=== PATIENT | female | born 1955 ===

== ENCOUNTER 2020-09-21 17:51 | Emergency (ER) | payer MEDICARE, MEDICAID ==
--- NOTE | 2020-09-21 18:34 | CR ---
PROCEDURE INFORMATION: Exam: XR Chest Exam date and time: 09/21/2020 6:21 PM Age: 65 years old Clinical indication: Left-sided chest pain TECHNIQUE: Imaging protocol: XR of the chest. Views: 1 view. COMPARISON: No relevant prior studies available. FINDINGS: Lungs: Unremarkable. No consolidation. Pleural spaces: Unremarkable. No pleural effusion. No pneumothorax. Heart/Mediastinum: Unremarkable. No cardiomegaly. Bones/joints: Unremarkable. IMPRESSION: No acute findings.
--- NOTE | 2020-09-21 18:40 | EDM.PDOC ---
<IggyKristaJessicadebbi Angelo - Last Filed: 09/22/20 00:17> ED HPI GENERAL MEDICAL PROBLEM - General Stated Complaint: CHEST PAIN ON LEFT SIDE Time Seen by Provider: 09/21/20 18:20 - Related Data Allergies Allergy/AdvReac Type Severity Reaction Status Date / Time aspirin Allergy Abdominal Verified 09/21/20 18:21 Pain Home Meds: Home Meds Gabapentin [Neurontin] 300 mg PO BID 09/21/20 [History] Hydrocodone/Acetaminophen [Hydrocodone-Acetamin 10-325 mg] 1 mg PO ASDIRECTED 09/21/20 [History] Indomethacin [Indocin SR] 75 mg PO DAILY 09/21/20 [History] Trihexyphenidyl [Artane] 2 mg PO ASDIRECTED 09/21/20 [History] Zolpidem [Ambien] 10 mg PO BEDTIME 09/21/20 [History] #2 Interpretation Rhythm: NSR [place]: Normal P-Wave: Present QRS: Normal ST-T: Normal Comparison: No Change Course - Re-Assessments/Exams Free Text/Narrative Re-Assessment/Exam: 09/22/20 00:18 No further c/o of chest pain. Reports some decreased appetite with stomach bug 2 days prior with diarrhea which has improved. Reports some increased frequency and burning past 24 hours. Departure - Departure Disposition: Home, Self-Care 01 Condition: Good Clinical Impression: Atypical chest pain UTI (urinary tract infection) Qualifiers: Urinary tract infection type: site unspecified Hematuria presence: without hematuria Qualified Code(s): N39.0 - Urinary tract infection, site not specified Instructions: Urinary Tract Infection, Adult, [id number], Nonspecific Chest Pain, Adult, [id number] Referrals: PCP,None [Primary Care Provider] - Forms: ED Department Discharge Additional Instructions: bland diet recheck clinic urgent follow up chest pain, sweating, shortness of breath macrobid 100mg one twice daily for one week <Christin Price - Last Filed: 09/22/20 07:35> ED HPI GENERAL MEDICAL PROBLEM - General Source of Information: Reports: Patient, RN, RN Notes Reviewed History Limitations: Reports: No Limitations - History of Present Illness INITIAL COMMENTS - FREE TEXT/NARRATIVE: Patient presents to the ED via personal vehicle with complaints of chest pain. The patient reports she has been experiencing transient chest pain for about three weeks; she notes it is localized to her left chest. She states the pain occurs in short, sharp bursts and moves around her left thorax, including her lateral chest, upper back, and most recently in her mid-left chest. She denies a history of respiratory disease or cardiac events. She denies recent illness, fever, shaking chills, cough, sore throat, palpitations, nausea, vomiting, or constipation. She does attest to the pain causing her to "..catch my breath" but denies overall shortness of breath. Additionally, she attests to diarrhea over the past 24 hours as well as dysuria and inability to fully void. She attests to a history of a COVID infection and notes she has received two doses of a COVID vaccine. The patient reports she is a former cigarette smoker with a quit date in 1994. She denies alcohol or recreational drug use. Left Chest Pain Score (Numeric/FACES): 8 Past Medical History Musculoskeletal History: Reports: Neck Pain, Chronic Social & Family History - Tobacco Use Tobacco Use Status *Q: Former Tobacco User Used Tobacco, but Quit: Yes Month/Year Tobacco Last Used: 1994 - Caffeine Use Caffeine Use: Reports: Tea - Recreational Drug Use Recreational Drug Use: No ED ROS GENERAL - Review of Systems Review Of Systems: Comprehensive ROS is negative, except as noted in HPI. ED EXAM, GENERAL - Physical Exam Exam: See Below Exam Limited By: No Limitations General Appearance: Alert, No Apparent Distress Eye Exam: Bilateral Eye: EOMI, Normal Inspection, PERRL (3mm) Ears: Normal External Exam, Normal Canal, Hearing Grossly Normal, Normal TMs Ear Exam: Bilateral Ear: Auricle Normal, Canal Normal, TM normal Nose: Normal Inspection, Normal Mucosa, No Blood Throat/Mouth: Normal Inspection, Normal Voice, No Airway Compromise Head: Atraumatic, Normocephalic Neck: Normal Inspection, Supple, Non-Tender, Full Range of Motion. No: Lymphadenopathy (L), Lymphadenopathy (R) Respiratory/Chest: No Respiratory Distress, Lungs Clear, Normal Breath Sounds, No Accessory Muscle Use, Chest Non-Tender. No: Crackles, Rales, Rhonchi, Wheezing Cardiovascular: Normal Peripheral Pulses, Regular Rate, Rhythm, No Edema, No Gallop, No JVD, No Murmur, No Rub Peripheral Pulses: 2+: Radial (L), Radial (R), Dorsalis Pedis (L), Dorsalis Pedis (R) GI/Abdominal: Normal Bowel Sounds, Soft, Non-Tender, No Distention, No Mass, Pelvis Stable (Female) Exam: Deferred Rectal (Female) Exam: Deferred Back Exam: Normal Inspection, Full Range of Motion Extremities: Normal Inspection, Normal Range of Motion, Non-Tender, Normal Capillary Refill, No Pedal Edema Neurological: Alert, Oriented, CN II-XII Intact, Normal Cognition, Normal Gait, No Motor/Sensory Deficits Psychiatric: Normal Affect, Normal Mood Skin Exam: Warm, Dry, Intact, Normal Color, No Rash. No: Ecchymosis, Erythema, Jaundice, Mottled, Pallor, Petechiae #2 Interpretation EKG Date: 09/21/20 Time: 17:13 Rhythm: NSR Rate (Beats/Min): 69 [place]: Normal P-Wave: Present QRS: Normal ST-T: Normal QT: Normal MT/PQ Interval: 0.148 EKG Interpretation Comments: NSR; No evidence of acute myocardial ischemia Course - Vital Signs Last Recorded V/S: Last Vital Signs Temp 97.0 F 09/21/20 22:20 Pulse 68 09/21/20 22:20 Resp 16 09/21/20 22:20 BP 126/66 09/21/20 22:20 Pulse Ox 98 09/21/20 22:20 - Orders/Labs/Meds Orders: Active Orders 24 hr Category Date Time Status CULTURE URINE [RM] Stat Lab 09/21/20 21:50 Received Labs: Laboratory Tests 09/21/20 09/21/20 09/21/20 Range/Units 18:10 18:10 18:10 WBC 4.3 L (5.0-10.0) 10^3/uL RBC 4.58 (4.2-5.4) 10^6/uL Hgb 13.7 (12.0-16.0) g/dL Hct 41.2 (37.0-47.0) % MCV 90.0 (80-100) fL MCH 29.9 (27.0-34.0) pg MCHC 33.3 (33.0-35.0) g/dL Plt Count 207 (150-450) 10^3/uL Neut % (Auto) 48.1 (42.2-75.2) % Lymph % (Auto) 39.2 (20.5-50.1) % Person % (Auto) 9.4 H (2-8) % Eos % (Auto) 3.1 H (1.0-3.0) % Baso % (Auto) 0.2 (0.0-1.0) % Sodium 143 (136-145) mmol/L Potassium 3.5 (3.5-5.1) mmol/L Chloride 108 H (98-107) mmol/L Carbon Dioxide 21 (21-32) mmol/L Anion Gap 17.5 H (7-13) mEq/L BUN 29 H (7-18) mg/dL Creatinine 0.84 (0.55-1.02) mg/dL Est Cr Clr Drug Dosing 58.43 mL/min Estimated GFR (MDRD) > 60 BUN/Creatinine Ratio 34.5 (No establ ref range) Glucose 109 H (70-99) mg/dL Lactic Acid 0.7 (0.4-2.0) mmol/L Calcium 8.5 (8.5-10.1) mg/dL Total Bilirubin 0.3 (0.2-1.0) mg/dL AST 16 (15-37) U/L ALT 26 (14-59) U/L Alkaline Phosphatase 95 (46-116) U/L Troponin I < 0.017 (0.000-0.056) ng/mL C-Reactive Protein 0.2 (0.0-0.9) mg/dL B-Natriuretic Peptide 11 (0-100) pg/ml Total Protein 7.4 (6.4-8.2) g/dL Albumin 3.9 (3.4-5.0) g/dL Globulin 3.5 Albumin/Globulin Ratio 1.1 Amylase 36 (25-115) U/L Lipase 155 (73-393) U/L Urine Color (YELLOW) Urine Appearance (CLEAR) Urine pH (5.0-9.0) Ur Specific [place] (1.005-1.030) Urine Protein (NEGATIVE) Urine Glucose (UA) (NEGATIVE) Urine Ketones (NEGATIVE) Urine Occult Blood (NEGATIVE) Urine Nitrite (NEGATIVE) Urine Bilirubin (NEGATIVE) Urine Urobilinogen (0.2-1.0) mg/dL Ur Leukocyte Esterase (NEGATIVE) Urine RBC /HPF Urine WBC (0-5/HPF) /HPF Ur Epithelial Cells (NOT SEEN) /HPF Amorphous Sediment (NOT SEEN) /HPF Urine Bacteria (0-FEW/HPF) /HPF Urine Mucus (NOT SEEN) /LPF 09/21/20 09/21/20 Range/Units 21:50 22:10 WBC (5.0-10.0) 10^3/uL RBC (4.2-5.4) 10^6/uL Hgb (12.0-16.0) g/dL Hct (37.0-47.0) % MCV (80-100) fL MCH (27.0-34.0) pg MCHC (33.0-35.0) g/dL Plt Count (150-450) 10^3/uL Neut % (Auto) (42.2-75.2) % Lymph % (Auto) (20.5-50.1) % Person % (Auto) (2-8) % Eos % (Auto) (1.0-3.0) % Baso % (Auto) (0.0-1.0) % Sodium (136-145) mmol/L Potassium (3.5-5.1) mmol/L Chloride (98-107) mmol/L Carbon Dioxide (21-32) mmol/L Anion Gap (7-13) mEq/L BUN (7-18) mg/dL Creatinine (0.55-1.02) mg/dL Est Cr Clr Drug Dosing mL/min Estimated GFR (MDRD) BUN/Creatinine Ratio (No establ ref range) Glucose (70-99) mg/dL Lactic Acid (0.4-2.0) mmol/L Calcium (8.5-10.1) mg/dL Total Bilirubin (0.2-1.0) mg/dL AST (15-37) U/L ALT (14-59) U/L Alkaline Phosphatase (46-116) U/L Troponin I < 0.017 (0.000-0.056) ng/mL C-Reactive Protein (0.0-0.9) mg/dL B-Natriuretic Peptide (0-100) pg/ml Total Protein (6.4-8.2) g/dL Albumin (3.4-5.0) g/dL Globulin Albumin/Globulin Ratio Amylase (25-115) U/L Lipase (73-393) U/L Urine Color Yellow (YELLOW) Urine Appearance Turbid (CLEAR) Urine pH 5.0 (5.0-9.0) Ur Specific [place] >= 1.030 (1.005-1.030) Urine Protein Negative (NEGATIVE) Urine Glucose (UA) Negative (NEGATIVE) Urine Ketones Negative (NEGATIVE) Urine Occult Blood Moderate H (NEGATIVE) Urine Nitrite Positive H (NEGATIVE) Urine Bilirubin Negative (NEGATIVE) Urine Urobilinogen 0.2 (0.2-1.0) mg/dL Ur Leukocyte Esterase Small H (NEGATIVE) Urine RBC 0-5 /HPF Urine WBC 30-40 H (0-5/HPF) /HPF Ur Epithelial Cells Occasional (NOT SEEN) /HPF Amorphous Sediment Few (NOT SEEN) /HPF Urine Bacteria Many H (0-FEW/HPF) /HPF Urine Mucus Rare (NOT SEEN) /LPF Meds: Medications Discontinued Medications Generic Name Dose Route Start Last Admin Trade Name Freq PRN Reason Stop Dose Admin Nitrofurantoin Macrocrystals 100 mg 09/21/20 22:45 09/21/20 23:02 Nitrofurantoin Monohydrate/Macrocrystalline 100 Mg Cap PO 09/21/20 22:46 100 mg ONETIME ONE Administration Nitrofurantoin Macrocrystals Confirm 09/21/20 23:01 09/21/20 23:06 Nitrofurantoin Monohydrate/Macrocrystalline 100 Mg Cap Administered 09/21/20 23:02 Not Given Dose 100 mg .ROUTE .STK-MED ONE - Radiology Interpretation Free Text/Narrative:: [facility] Final Radiology Report Call: [phone] assistance Online chat: [email or web address] [facility] Name: GINGER VARMA Age: 65Years F Date: 09/21/2020 SSN: -- : [id number] Study: CR CHEST 1V FRONTAL Requesting Physician: Christin Price Images: 1 Addl Studies: Provided Clinical History: Chest pain Contrast: Contrast Medium: Contrast Amount: Contrast Method: CONFIDENTIALITY STATEMENT This report is intended only for use by the referring physician, and only in accordance with law. If you received this in error, call [phone]. Page 1 of 1 PROCEDURE INFORMATION: Exam: XR Chest Exam date and time: 09/21/2020 6:21 PM Age: 65 years old Clinical indication: Left-sided chest pain TECHNIQUE: Imaging protocol: XR of the chest. Views: 1 view. COMPARISON: No relevant prior studies available. FINDINGS: Lungs: Unremarkable. No consolidation. Pleural spaces: Unremarkable. No pleural effusion. No pneumothorax. Heart/Mediastinum: Unremarkable. No cardiomegaly. Bones/joints: Unremarkable. IMPRESSION: No acute findings. Thank you for allowing us to participate in the care of your patient. Dictated and Authenticated by: Rubio Parikh MD 09/21/2020 6:34 PM Central Time ([place] & [place]) Departure - Departure Time of Disposition: 23:06 Sepsis Event Note (ED) - Evaluation Sepsis Screening Result: No Definite Risk - Focused Exam Vital Signs: Vital Signs Temp Pulse Resp BP Pulse Ox 09/21/20 22:20 97.0 F 68 16 126/66 98 09/21/20 21:09 98.0 F 61 16 128/60 97 09/21/20 19:45 98.8 F 68 16 136/69 97 - My Orders Last 24 Hours: My Active Orders 09/21/20 21:50 CULTURE URINE [RM] Stat - Assessment/Plan Last 24 Hours: My Active Orders 09/21/20 21:50 CULTURE URINE [RM] Stat
[2020-09-21 18:42] LABS: ANION GAP 17.5 mEq/L (7-13); CHLORIDE,CL 108 mmol/L (98-107); SODIUM,NA 143 mmol/L (136-145)
[2020-09-21] MEDS ORDERED: Nitrofurantoin Monohydrate/Macrocrystalline 100 MG Cap PO ONE (22:45)
[2020-09-21] MEDS ORDERED: Nitrofurantoin Monohydrate/Macrocrystalline 100 MG Cap ONE (23:01)
== END 2020-09-21 23:06 | disposition home or self-care (01) ==
LOC: DL.ED 17:51
DX: R07.89 Other chest pain (principal); N39.0 Urinary tract infection, site not specified; Z79.899 Other long term (current) drug therapy; Z88.6 Allergy status to analgesic agent; Z87.891 Personal history of nicotine dependence
CPT/HCPCS: 36415; 71045; 80053; 81001; 82150; 83605; 83690; 83880; 84484; 85025; 86140; 87086; 87088; 87186; 93005; 93010; 99284; 99285-25; A9270-GY